=== PATIENT | female | born 1985 | race Caucasian/White ===

== ENCOUNTER 2017-10-04 11:18 | Outpatient (CLI) | payer OTHER ==
[2016-01-17 14:11] VITALS: BP 126/78
[2017-10-04 12:12] LABS: eGFR (African) > 60; eGFR (Non-African) > 60
[2017-10-04 12:14] LABS: BASOPHILS % 0.2 (0.0-1.5); MEAN CORPUSCULAR VOLUME 87.9 fl (80.0-100.0); MONOCYTES % 4.3 % (0.0-11.0); NEUTROPHILS # 3.7 # k/uL (1.4-7.7)
== END 2017-10-04 11:20 ==
LOC: LAB 11:18
PROVIDERS: ATTEND Physician Assistant
DX: Z00.00 Encounter for general adult medical examination without abnormal findings (principal)
CPT/HCPCS: 36415; 80053; 80061; 84443; 85025